=== PATIENT | female | born 1970 | race Caucasian/White ===

== ENCOUNTER 2022-06-14 09:30 | Day surgery (SDC) | payer BC, SELFPAY ==
[2022-03-17 13:26] VITALS: BMI 35.4
[2022-06-14 09:36] VITALS: BMI 34.5
[2022-06-14 09:43] VITALS: BP 132/91; PULSE 85; RESP 16; TEMP 36.2; O2SAT 99
[2022-06-14] MEDS: Lactated Ringers 1,000 ML 80 ML IVCONT (09:51)
--- NOTE | 2022-06-14 09:54 | MHC.SHP ---
Pre-Procedural Eval Section A Date of Service: 06/14/22 Section B Chief Complaint: screening Relevant Family History (Specify if Yes): No Relevant Social History: None Present Medications: see Short Stay Collaborative assessment Medical History: Significant History (PCOS, insulin resistance) History of Previous Operations: Relevant previous surgery/procedure and date(s) (, tonsils) Allergies: Allergies Allergy/AdvReac Type Severity Reaction Status Date / Time cephalexin [Keflex] Allergy Intermediate Rash Verified 06/14/22 09:34 mold Allergy Intermediate Sneezing Verified 06/14/22 09:34 Review of Systems Sugical H&P ROS: Negative: Constitution, Cardiovascular, Respiratory, Neurological, Psychiatric, Hem-Onc, Allergic/Immunologic, Gastrointestinal, Genitourinary, Musculoskeletal, Integumentary, Endocrine and Eyes/Ears/Nose/Throat Exam Surgical H&P Exam: Normal: HEENT, Normal: Heart, Normal: Lungs, Normal: Extremities, Normal: Abdomen, Normal: Skin and Normal: Neurological Plan Diagnosis/Plan: Unchanged I have reviewed the history and physical and performed a pertinent physical examination on my patient. No changes have occurred unless specified. Time Spent With Patient Time: Total time managing care of this patient today ____ minutes.
--- NOTE | 2022-06-14 10:00 | P.OP_ITS ---
Operative Note Operative Note Date of Service: 06/14/22 Narrative: Operative Information Procedure Description: Colonoscopy Indication: screening Anesthesia: MAC COLONOSCOPY Instrument: Olympus variable stiffness pediatric scope 190L Colonoscopy Monitoring: Vital signs and clinical assessment, continuous EKG monitoring, Pulse oximetry, Carbon Dioxide monitoring and blood pressure monitoring were done throughout the procedure. Colon withdrawal time was 6 minutes. Procedure: The patient was placed in the left lateral decubitis position and pre-procedure medications were administered. After a digital rectal examination of the ano-rectum, the video colonoscope was inserted into the rectum and advanced through the colon to the cecum/TI. The colonoscope was slowly withdrawn in a retrograde panoramic fashion and the colon mucosa was carefully examined including a retroflexed view of the rectum. Findings and interventions are described below. Procedure Difficulty: easy Findings: Terminal Ileum-normal Cecum:normal Ascending Colon: normal Transverse Colon -normal Descending Colon:normal Sigmoid Colon: mild diverticulosis Rectum: Retroflexion with small internal hemorrhoids, grade I Anorectum - normal Colon preparation: [place] Bowel Preparation Scale Right colon; 3 Transverse colon: 3 Left colon; 3 (0 = Unprepared colon segment with mucosa not seen due to solid stool that cannot be cleared. 1 = Portion of mucosa of the colon segment seen, but other areas of the colon segment not well seen due to staining, residual stool and/or opaque liquid. 2 = Minor amount of residual staining, small fragments of stool and/or opaque liquid, but mucosa of colon segment seen well. 3 = Entire mucosa of colon segment seen well with no residual staining, small fragments of stool or opaque liquid) Impression and Post Procedure Diagnosis: internal hemorrhoids diverticular disease Plan: High fiber diet leaflet Avoid straining at stool, epsom salts and sitz bath, anusol supps or cream Repeat Colonoscopy in 10 years or earlier if clinically indicated Above findings were reviewed with the patient and relevant handouts were provided if indicated.
--- NOTE | 2022-06-14 10:06 | HO.ANESPROP2 ---
HPI - Anesthesia Eval Consult details Narrative: 51 yr old for colonscopy screen [facility] Past Medical History Medical History (Updated 06/14/22 @ 09:34 by Nusrat Rivera) Exercise-induced asthma History of COVID-19 History of endometrial biopsy Lipoma of axilla Family History Family History Mother Breast cancer H/O bilateral mastectomy Diabetes 1.5, managed as type 2 HTN (hypertension) Father Heart attack HTN (hypertension) Brother HTN (hypertension) Family history of problems with anesthesia: No Surgical History Surgical History (Updated 06/14/22 @ 09:34 by Nusrat Rivera) History of Hx of breast biopsy Hx of tonsillectomy Hx of ultrasound guided needle biopsy History of Problems with Anesthesia: No Social History Social History (Updated 03/17/22 @ 13:25 by Glenny Johnson RN) Household Members: Spouse Alcohol intake: current Alcohol intake frequency: a few times a month Patient Tobacco Use Status: Former Tobacco user Quit Date: 1996 Tobacco use type: Cigarette Years Smoked: 10 Smoked in Last 30 Days: No Use of substances other than those prescribed or required for medical reasons: No Are you DNR?: No Advance Directives: No Advance Directives Information Provided: Yes Meds Allergies Allergy/AdvReac Type Severity Reaction Status Date / Time cephalexin [Keflex] Allergy Intermediate Rash Verified 06/14/22 09:34 mold Allergy Intermediate Sneezing Verified 06/14/22 09:34 Active Medications: Current Medications Lactated Ringer's (Lr) 1,000 mls @ 80 mls/hr IVCONT .[id number] RADHA Last Admin: 06/14/22 09:51 Dose: 80 mls/hr Home Medications Medication Instructions Recorded Confirmed Last Taken Type Fish Oil 06/14/22 06/09/22 History albuterol sulfate 90 mcg/actuation 2 puff inhalation Q4-6H PRN dyspnea 06/14/22 06/14/22 Unknown History aerosol inhaler Exam Exam Date and Time: June 14, 2022 1006 Height,Weight and Vital Signs: Height 5 ft 3 in Weight 88.451 kg Last Vital Signs Temp 97.1 F 06/14/22 09:43 Pulse 85 06/14/22 09:43 Resp 16 06/14/22 09:43 BP 132/91 H 06/14/22 09:43 Pulse Ox 99 06/14/22 09:43 O2 Del Method 06/14/22 09:43 Airway Mallampati Class: II TM Dist: >3cm Neck ROM: Full Heart: rrr Lungs: cta Assessment and Plan Assessment Anesthesia Assessment: Anesthesia Plan Discussed and Chart Reviewed Final Anesthetic Review Family History of Problems with Anesthesia: No History of Problems with Anesthesia: No NPO: Yes ASA Class: II Final Preanesthetic Review: No Changes in Pt Med Stat, Meds/Allgs Chart Reviewed, Consent Obtained/Reviewed and Anes Risks/Benef Reviewed Patient Risk: Low Procedure Risk: Low Anesthetic Plan Anesthetic Plan: MAC: Disposition: Standard PACU
[2022-06-14 10:30] VITALS: BP 114/78; PULSE 82; RESP 18; TEMP 37.3; O2SAT 99
[2022-06-14 10:45] VITALS: BP 124/82; PULSE 82; RESP 18; TEMP 36.5; O2SAT 98
== END 2022-06-14 11:53 | disposition home or self-care (01) ==
PROVIDERS: PCP Registered Nurse; Visit Provider Internal Medicine Gastroenterology
PROC: 0DJD8ZZ Inspection of Lower Intestinal Tract, Via Natural or Artificial Opening Endoscopic (ICD-10-PCS; CPT 45378; principal; 2022-06-14 10:40)
DX: Z12.11 Encounter for screening for malignant neoplasm of colon (principal); K57.30 Diverticulosis of large intestine without perforation or abscess without bleeding; K64.0 First degree hemorrhoids; E28.2 Polycystic ovarian syndrome; E88.81 Metabolic syndrome and other insulin resistance; J45.990 Exercise induced bronchospasm; Z79.899 Other long term (current) drug therapy; Z88.1 Allergy status to other antibiotic agents; Z87.891 Personal history of nicotine dependence; Z86.16 Personal history of COVID-19
CPT/HCPCS: 45378

== ENCOUNTER → 2022-06-28 16:37 | Outpatient (BNVA) | payer BC, SELFPAY | PROVIDERS: PCP Registered Nurse; Visit Provider Nurse Practitioner Family | DX: Z13.89 Encounter for screening for other disorder (principal) ==